=== PATIENT | female | born 2000 | race Two or more races ===

== ENCOUNTER → 2025-07-10 | Outpatient (CLI) | payer MEDICAID, SELFPAY ==
--- NOTE | 2025-07-10 14:56 | XR_ITS ---
Examination: Complete OB ultrasound, less than 14 weeks, transabdominal Date and time of exam: July 10, 2025 1508 hours INDICATIONS: Supervision of otherwise normal Technique: Obstetrical ultrasound images less than 14 weeks performed via transabdominal imaging Findings: A normal shaped single intrauterine gestation is present in the uterus. CRL 1.5 cm corresponds to 7 week 6 day gestational age Cardiac motion 155 BPM Ultrasonographic survey of visible and placental structures unremarkable. Amniotic fluid volume appears appropriate for this estimated gestational age. Right ovary 2.5 cm arterial flow Left ovary 2.7 cm arterial flow 21 x 16 mm cyst and adjacent cyst 2.9 x 2.4 cm IMPRESSION: Viable intrauterine gestation 7 weeks 6 days.
== END | disposition home or self-care (01) ==
PROVIDERS: Referring Provider Internal Medicine; Visit Provider Internal Medicine
DX: Z34.00 Encounter for supervision of normal first pregnancy, unspecified trimester (principal); Z3A.01 Less than 8 weeks gestation of pregnancy
CPT/HCPCS: 76801

== ENCOUNTER → 2025-08-19 | Outpatient (CLI) | payer MEDICAID, SELFPAY ==
--- NOTE | 2025-08-19 | XR_ITS ---
Examination: OB Transvaginal ultrasound of the pelvis, complete Technique: Transvaginal sonographic images pelvis performed using hudson scale imaging Exam date and time: August 19, 2025, 1125 hours INDICATIONS: No heart tones on examination in physician's office today. FINDINGS: Uterus 11.8 cm intrauterine gestation 7.4 cm CRL corresponds to 13 weeks 4 days gestational age Cardiac motion 148 bpm Right ovary 2.5 cm arterial flow Left ovary 2.9 cm arterial flow IMPRESSION: Viable intrauterine gestation 13 weeks 4 days.
== END | disposition home or self-care (01) ==
DX: O36.8310 Maternal care for abnormalities of the fetal heart rate or rhythm, first trimester, not applicable or unspecified (principal); Z3A.13 13 weeks gestation of pregnancy
CPT/HCPCS: 76817